=== PATIENT | female | born 1990 | race American Indian/Alaskan Native ===

== ENCOUNTER 2016-11-19 11:50 | Emergency (ER) | payer SELFPAY ==
--- NOTE | 2016-11-19 15:27 | Emergency Department Report ---
ED ENT HPI - General Chief complaint: Urogenital-Female Stated complaint: STD/HEMORROIDS Time Seen by Provider: 11/19/16 15:20 Source: patient Mode of arrival: Ambulatory Limitations: No Limitations - Related Data Previous Rx's Medication Instructions Recorded Last Taken Type Ferrous Sulfate [Feosol 325 MG tab] 325 mg PO BID #60 tablet 08/16/13 Unknown Rx Ciprofloxacin HCl [Ciprofloxacin 500 mg PO Q12HR #14 tab 05/26/15 Unknown Rx TAB] Fluconazole [Diflucan TAB] 150 mg PO ONCE #1 tablet 05/26/15 Unknown Rx HYDROcodone/APAP 7.5-325 [[place] 1 each PO Q4-6H PRN #16 tablet 05/26/15 Unknown Rx 7.5/325] Doxycycline [Vibramycin CAP] 100 mg PO Q12HR #28 capsule 02/22/16 Unknown Rx HYDROcodone/APAP 5-325 [[place] 1 each PO Q6HR PRN #20 tablet 02/22/16 Unknown Rx 5/325] metroNIDAZOLE [Flagyl] 500 mg PO Q12HR #28 tab 02/22/16 Unknown Rx Allergies Allergy/AdvReac Type Severity Reaction Status Date / Time No Known Allergies Allergy Verified 11/19/16 13:02 ED Dental HPI - General Chief complaint: Urogenital-Female Stated complaint: STD/HEMORROIDS Time Seen by Provider: 11/19/16 15:20 Source: patient Mode of arrival: Ambulatory Limitations: No Limitations - Related Data Previous Rx's Medication Instructions Recorded Last Taken Type Ferrous Sulfate [Feosol 325 MG tab] 325 mg PO BID #60 tablet 08/16/13 Unknown Rx Ciprofloxacin HCl [Ciprofloxacin 500 mg PO Q12HR #14 tab 05/26/15 Unknown Rx TAB] Fluconazole [Diflucan TAB] 150 mg PO ONCE #1 tablet 05/26/15 Unknown Rx HYDROcodone/APAP 7.5-325 [[place] 1 each PO Q4-6H PRN #16 tablet 05/26/15 Unknown Rx 7.5/325] Doxycycline [Vibramycin CAP] 100 mg PO Q12HR #28 capsule 02/22/16 Unknown Rx HYDROcodone/APAP 5-325 [[place] 1 each PO Q6HR PRN #20 tablet 02/22/16 Unknown Rx 5/325] metroNIDAZOLE [Flagyl] 500 mg PO Q12HR #28 tab 02/22/16 Unknown Rx Allergies Allergy/AdvReac Type Severity Reaction Status Date / Time No Known Allergies Allergy Verified 11/19/16 13:02 ED Review of Systems ROS: Stated complaint: STD/HEMORROIDS Other details as noted in HPI ED Past Medical Hx - Past Medical History Previous Medical History?: No - Surgical History Past Surgical History?: Yes Hx Pacemaker: No Hx Internal Defibrillator: No Additional Surgical History: x 5 - Social History Smoking Status: Never Smoker Substance Use Type: None - Medications Home Medications: Home Medications Medication Instructions Recorded Confirmed Last Taken Type Ferrous Sulfate [Feosol 325 MG tab] 325 mg PO BID #60 tablet 08/16/13 05/26/15 Unknown Rx Ciprofloxacin HCl [Ciprofloxacin 500 mg PO Q12HR #14 tab 05/26/15 Unknown Rx TAB] Fluconazole [Diflucan TAB] 150 mg PO ONCE #1 tablet 05/26/15 Unknown Rx HYDROcodone/APAP 7.5-325 [[place] 1 each PO Q4-6H PRN #16 tablet 05/26/15 Unknown Rx 7.5/325] Doxycycline [Vibramycin CAP] 100 mg PO Q12HR #28 capsule 02/22/16 Unknown Rx HYDROcodone/APAP 5-325 [[place] 1 each PO Q6HR PRN #20 tablet 02/22/16 Unknown Rx 5/325] metroNIDAZOLE [Flagyl] 500 mg PO Q12HR #28 tab 02/22/16 Unknown Rx ED Physical Exam - General Limitations: No Limitations ED Course Vital Signs 11/19/16 13:02 Temperature 98.6 F Pulse Rate 83 Respiratory 20 Rate Blood Pressure 141/68 O2 Sat by Pulse 100 Oximetry Critical care attestation.: If time is entered above; I have spent that time in minutes in the direct care of this critically ill patient, excluding procedure time. ED Disposition Condition: Stable Referrals: PRIMARY CARE, [Primary Care Provider] - 3-5 Days
[2016-11-19 15:53] LABS: Bacteria,Urine 1+ /HPF (Negative); Bilirubin,Urine NEG (Negative); Blood,Urine NEG (Negative); Ketones,Urine NEG (Negative); Leukocyte Esterase,Urine TR (Negative); Mucus,Urine 3+ /HPF; Nitrite,Urine NEG (Negative); Protein,Urine <15 mg/dL mg/dL (Negative); Urobilinogen,Urine < 2.0 mg/dL (<2.0)
--- NOTE | 2016-11-19 16:30 | Emergency Department Report ---
Entered by CHERRY PRICE, acting as scribe for MAURA VAIL PA. ED Female HPI - General Chief complaint: Urogenital-Female Stated complaint: STD/HEMORROIDS Time Seen by Provider: 11/19/16 15:20 Source: patient Mode of arrival: Ambulatory Limitations: No Limitations - History of Present Illness Initial comments: 26-year-old female past medical history none presents with complaint of a sensation of a a piece of material hanging outside of her anus. Patient also reports vaginal discharge. Patient is concerned that she may have been exposed to an STD. She states she had sex with a male that had with a girl who has vaginitis. She had anal sex and there's something hanging in her anus. Patient states that her sex partner may have been exposed to a female who may have had vaginitis as per the patient's report. Patient denies any fevers chills abdominal pain MD Complaint: vaginal discharge Improves with: none Worsens with: none Last Menstrual Period: 11/02/16 EDC: 08/09/17 Associated Symptoms: vaginal discharge, other (rectal pain an drectal bleeding) . denies: fever/chills - Related Data Sexually active: Yes Previous Rx's Medication Instructions Recorded Last Taken Type Ferrous Sulfate [Feosol 325 MG tab] 325 mg PO BID #60 tablet 08/16/13 Unknown Rx Ciprofloxacin HCl [Ciprofloxacin 500 mg PO Q12HR #14 tab 05/26/15 Unknown Rx TAB] Fluconazole [Diflucan TAB] 150 mg PO ONCE #1 tablet 05/26/15 Unknown Rx HYDROcodone/APAP 7.5-325 [[place] 1 each PO Q4-6H PRN #16 tablet 05/26/15 Unknown Rx 7.5/325] Doxycycline [Vibramycin CAP] 100 mg PO Q12HR #28 capsule 02/22/16 Unknown Rx HYDROcodone/APAP 5-325 [[place] 1 each PO Q6HR PRN #20 tablet 02/22/16 Unknown Rx 5/325] metroNIDAZOLE [Flagyl] 500 mg PO Q12HR #28 tab 02/22/16 Unknown Rx Docusate Sodium [Colace] 100 mg PO BID PRN #1 bottle 11/19/16 Unknown Rx metroNIDAZOLE [Flagyl TAB] 500 mg PO Q12HR #14 tab 11/19/16 Unknown Rx Allergies Allergy/AdvReac Type Severity Reaction Status Date / Time No Known Allergies Allergy Verified 11/19/16 13:02 ED Review of Systems Comment: All other systems reviewed and negative Constitutional: denies: chills, fever Genitourinary: discharge, other (rectal pain, rectal bleeding) ED Past Medical Hx - Past Medical History Previous Medical History?: No - Surgical History Past Surgical History?: Yes Hx Pacemaker: No Hx Internal Defibrillator: No Additional Surgical History: x 5 - Social History Smoking Status: Never Smoker Substance Use Type: None - Medications Home Medications: Home Medications Medication Instructions Recorded Confirmed Last Taken Type Ferrous Sulfate [Feosol 325 MG tab] 325 mg PO BID #60 tablet 08/16/13 05/26/15 Unknown Rx Ciprofloxacin HCl [Ciprofloxacin 500 mg PO Q12HR #14 tab 05/26/15 Unknown Rx TAB] Fluconazole [Diflucan TAB] 150 mg PO ONCE #1 tablet 05/26/15 Unknown Rx HYDROcodone/APAP 7.5-325 [[place] 1 each PO Q4-6H PRN #16 tablet 05/26/15 Unknown Rx 7.5/325] Doxycycline [Vibramycin CAP] 100 mg PO Q12HR #28 capsule 02/22/16 Unknown Rx HYDROcodone/APAP 5-325 [[place] 1 each PO Q6HR PRN #20 tablet 02/22/16 Unknown Rx 5/325] metroNIDAZOLE [Flagyl] 500 mg PO Q12HR #28 tab 02/22/16 Unknown Rx Docusate Sodium [Colace] 100 mg PO BID PRN #1 bottle 11/19/16 Unknown Rx metroNIDAZOLE [Flagyl TAB] 500 mg PO Q12HR #14 tab 11/19/16 Unknown Rx ED Physical Exam - General Limitations: No Limitations General appearance: alert, in no apparent distress - Head Head exam: Present: atraumatic, normocephalic, normal inspection - Eye Eye exam: Present: normal appearance, PERRL, EOMI - ENT ENT exam: Present: normal exam, normal orophraynx, mucous membranes moist, TM's normal bilaterally, normal external ear exam - Neck Neck exam: Present: normal inspection, full ROM. Absent: tenderness - Respiratory Respiratory exam: Present: normal lung sounds bilaterally. Absent: wheezes, rales, rhonchi - Cardiovascular Cardiovascular Exam: Present: regular rate, normal rhythm, normal heart sounds. Absent: systolic murmur, diastolic murmur, rubs, gallop - GI/Abdominal GI/Abdominal exam: Present: soft, normal bowel sounds. Absent: tenderness, guarding, rebound - Rectal Rectal exam: Present: hemorrhoids (hemorrhoid in 3:00 positions anus, small, not bleeding, not tender) - External exam: Present: normal external exam Speculum exam: Present: vaginal discharge (whitish vaginal discharge) - Extremities Exam Extremities exam: Present: normal inspection, full ROM, normal capillary refill. Absent: tenderness, pedal edema, joint swelling, calf tenderness - Back Exam Back exam: Present: normal inspection, full ROM. Absent: tenderness, CVA tenderness (R), CVA tenderness (L), muscle spasm, paraspinal tenderness, vertebral tenderness, rash noted - Neurological Exam Neurological exam: Present: alert, oriented X3 - Psychiatric Psychiatric exam: Present: normal affect, normal mood - Skin Skin exam: Present: warm, dry, intact, normal color. 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 no cmt, no adnexal pain, no clinical signs of PID or GC. GC culture sent. 2- UA unremarkable,pt has no c/o increased frequency or dysuria. pt states she has had slight increase in whitish vaginal discharge and claims she had exposure to sex partner with another partner who was diagnosed with BV this week. 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, i will treat her empirically for now 4- f/u with obgyn ED Disposition Clinical Impression: External hemorrhoid, Bacterial vaginosis Disposition: - TO HOME OR SELFCARE Is pt being admited?: No Does the pt Need Aspirin: No Condition: Stable Instructions: Bacterial Vaginosis (ED), Hemorrhoids (ED), Sitz Bath (GEN) Prescriptions: Docusate Sodium [Colace] 100 mg PO BID PRN #1 bottle PRN Reason: Constipation metroNIDAZOLE [Flagyl TAB] 500 mg PO Q12HR #14 tab Referrals: [facility] [Outside] - 3-5 Days NANCY SEARS MD [Staff Physician] - 3-5 Days Forms: STI Treatment and Prevention, Work/School Release Form(ED) Time of Disposition: 16:18 This documentation as recorded by the DEE steiner ELIZABETH,accurately reflects the service I personally performed and the decisions made by me,MAURA VAIL PA.
[2016-11-19 16:34] VITALS: BP 127/81
== END 2016-11-19 16:33 | disposition home or self-care (01) ==
LOC: ED 11:50
DX: K64.4 Residual hemorrhoidal skin tags (principal); N76.0 Acute vaginitis
CPT/HCPCS: 81001; 81025; 87086; 87210; 87591; 99284

== ENCOUNTER 2021-11-02 21:34 | Emergency (ER) | payer MEDICAID | END 2021-11-02 22:05 | disposition left against medical advice (07) | LOC: ED 21:34 | DX: R05.9 Cough, unspecified (principal); Z53.21 Procedure and treatment not carried out due to patient leaving prior to being seen by health care provider ==